=== PATIENT | female | born 1960 | race Caucasian/White ===

== ENCOUNTER → 2017-09-11 | Outpatient (CLI) | payer OTHER ==
[~2017-09-11] MED LIST: CIMZIA; CYMBALTA20 MG; FOLIC ACID1 MG; LEXAPRO 10 MG T10 M2 PO; METHOTREXATE 22.5 M1; MULTIVITAMINS PO; WELLBUTRIN 75 M75 M1 PO; [UNRECOGNIZED DRUG - OTHER]
== END ==
LOC: RAD 11:19
DX: Z12.31 Encounter for screening mammogram for malignant neoplasm of breast (principal)

== ENCOUNTER → 2018-11-26 | Outpatient (CLI) | payer OTHER | LOC: RAD 10:23 | DX: Z12.31 Encounter for screening mammogram for malignant neoplasm of breast (principal) ==

== ENCOUNTER → 2019-03-20 | Outpatient (CLI) | payer OTHER | LOC: ULTRA 08:24 | DX: R10.9 Unspecified abdominal pain (principal); Z90.5 Acquired absence of kidney; Z90.49 Acquired absence of other specified parts of digestive tract; Z98.890 Other specified postprocedural states ==